=== PATIENT | female | born 1950 | race Caucasian/White ===

== ENCOUNTER → 2016-11-18 | Outpatient (CLI) | payer OTHER ==
[~2016-11-18] MED LIST: AMOX875T3 PO; CHOL100010 PO; DTRSR4 PO; DULO60CA44 PO; FLUT0.15 NAE; LORA-741 PO; LORA10TA44 PO; SIMV40TA4 PO
[2016-11-18 14:11] LABS: URINE APPEARANCE TURBID (CLEAR); URINE BILIRUBIN NEG (NEG); URINE COLOR YELLOW; URINE EPITHELIAL CELL AUTO 20-30 /lpf (0-5); URINE NITRITE POS (NEG); URINE SPECIFIC GRAVITY 1.017 (1.000-1.030); UROBILINOGEN NEG (NEG)
[2016-11-18 14:29] LABS: MANUAL MICROSCOPIC REQUIRED? NO; REVIEW REQ? NO
== END | disposition home or self-care (01) ==
LOC: C.LABBC 11:23
PROVIDERS: ATTEND Family Medicine
DX: R30.0 Dysuria (principal); R05 Cough

== ENCOUNTER → 2016-12-03 | Outpatient (CLI) | payer OTHER ==
[2016-12-03 18:43] LABS: INFLUENZA A PCR Neg for Influ A (NEG); INFLUENZA B PCR Neg for Influ B (NEG)
== END | disposition home or self-care (01) ==
LOC: C.LABBC 13:50
PROVIDERS: ATTEND Family Medicine
DX: J22 Unspecified acute lower respiratory infection (principal)

== ENCOUNTER → 2016-12-22 | Outpatient (CLI) | payer OTHER ==
--- NOTE | 2016-12-22 12:06 | DIAGNOSTIC IMAGING REPORT ---
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 COMPARISON: Chest CT 06/24/2016. FINDINGS: Postoperative changes consistent with a prior right upper lobectomy. Surgical clips and suture material seen along the medial aspect of the right lung. A few small linear densities seen within the right lung are not significantly changed. These favor scarring from the postoperative change. Linear thickening within the right middle lobe adjacent to the suture material is also stable and likely represent scarring. No pneumothorax. No pleural effusions. A 1 mm punctate nodule within the left lung apex remains stable. This is of doubtful clinical significance. No new or suspicious pulmonary nodules identified. No suspicious lytic or blastic osseous lesions. No definite mediastinal or hilar lymphadenopathy on this noncontrast study. Subcarinal surgical clips are again noted. The heart is normal in size. The ascending thoracic aorta measures up to 3.6 cm in diameter. This remains unchanged. The unenhanced adrenal glands and spleen are unremarkable. Cholecystectomy. There are few hypodense lesions within the liver which are incompletely characterize on this noncontrast study. The dominant lesion measures 1.5 cm. These are stable from the prior study and therefore likely represent cysts. IMPRESSION: 1. Stable postoperative changes within the right lung with presumed areas of scarring as described above. 2. No lymphadenopathy within the chest. 3. Stable hepatic hypodense lesions which likely represent cysts. Electronically signed by: Aubrey Aguilar M.D. 12/22/2016 12:05 PM Dictated Date/Time: 12/22/2016 11:56 AM
== END | disposition home or self-care (01) ==
LOC: C.CTS 11:17
PROVIDERS: ATTEND Surgery
DX: C34.91 Malignant neoplasm of unspecified part of right bronchus or lung (principal); K76.9 Liver disease, unspecified

== ENCOUNTER → 2017-07-13 | Outpatient (CLI) | payer OTHER ==
[2017-07-13 18:02] LABS: ALT/SGPT 11 U/L (12-78); BLOOD UREA NITROGEN 14 mg/dl (7-18); BUN/CREATININE RATIO 14.3 (10-20); CALCIUM 9.7 mg/dl (8.5-10.1); CARBON DIOXIDE 30 mmol/L (21-32); CHLORIDE 108 mmol/L (98-107); CREATININE 0.95 mg/dl (0.60-1.20); GLUCOSE 79 mg/dl (70-99); POTASSIUM 3.8 mmol/L (3.5-5.1); SODIUM 142 mmol/L (136-145)
[2017-07-13 18:13] LABS: BASO % 0.3 %; BASO ABS # 0.02 K/uL (0-0.2); COMPLETE YES; HEMATOCRIT 45.5 % (37-47); IG% 0.2 %; LYMPH % 25.7 %; LYMPH ABS # 1.57 K/uL (1.2-3.4); MEAN CELL VOLUME 97.6 fL (80-100); MEAN CORPUSCULAR HGB CONC 32.7 g/dl (32-36); MEAN PLATELET VOLUME 9.9 fL (7.4-10.4); MONO % 7.5 %; NEUT % 65.3 %; PLATELET COUNT 235 K/uL (130-400); RED BLOOD COUNT 4.66 M/uL (4.2-5.4)
[2017-07-13 18:16] LABS: ALB/GLOB RATIO 1.3 (0.9-2); ALKALINE PHOSPHATASE 84 U/L (45-117); AST/SGOT 13 U/L (15-37)
--- NOTE | 2017-07-21 10:08 | CODING QUERY MEDICAL NECESSITY ---
SUPPORTING DIAGNOSIS NEEDED Ana PAK, A supporting diagnosis is required for the test/procedure performed on this patient in order for us to be reimbursed by the patient's insurance. Please provide a supporting diagnosis for the following test/procedure listed below next to the test name along with your signature. *If there is no additional diagnosis for this patient that would support the following test/procedure please document that below next to the test/procedure. Test(s)/Procedure(s) that require a supporting diagnosis: * ([id number]) VITAMIN D ASSAY DIAGNOSIS: * ([id number]) B12 VITAMIN LEVEL DIAGNOSIS: DATE OF SERVICE: 07/13/17 Provider Signature: Date: Thank you Rashi Shahid [facility] Information Management Once completed, please kindly fax back to [phone] For questions please call [phone]
== END | disposition home or self-care (01) ==
LOC: C.LABPVFM 15:12
PROVIDERS: ATTEND Nurse Practitioner Family
DX: R53.83 Other fatigue (principal); R82.90 Unspecified abnormal findings in urine; M81.0 Age-related osteoporosis without current pathological fracture

== ENCOUNTER → 2017-07-28 | Outpatient (CLI) | payer OTHER ==
--- NOTE | 2017-07-28 13:25 | DIAGNOSTIC IMAGING REPORT ---
(CHEST) THORAX WITHOUT CLINICAL HISTORY: ADENOCARCINOMA RT LUNG COMPARISON STUDY: 12/22/2016 CT DOSE: 172.19 mGy.cm TECHNIQUE: CT of the thorax was performed from the thoracic inlet to the lung bases. Images are reviewed in the axial, sagittal, and coronal planes. IV contrast was not administered for this examination. A dose lowering technique was utilized adhering to the principles of ALARA. FINDINGS: Thyroid: Imaged portions of the thyroid gland are normal in appearance. Thoracic aorta: The ascending thoracic aorta measures 37 mm. Heart: The heart is normal in size and configuration, without pericardial effusion. Lungs and pleural spaces: The patient is status post a right upper lobectomy. There is mild stable linear scarring at the level of the resection. There is no acute parenchymal consolidation. There are no suspicious pulmonary masses. Mediastinum: There is no mediastinal lymphadenopathy. Flakita: There is no evidence of pathologic hilar adenopathy given the limitations of a noncontrast study Axilla: There is no evidence of pathologic axillary lymphadenopathy Upper abdomen: Hepatic hypodensities remain stable. These approach water attenuation and likely represent cysts. Skeletal structures: There are no lytic or blastic osseous lesions. IMPRESSION: 1. Stable postsurgical changes of a right upper lobectomy 2. No evidence of recurrent neoplasm. 3. No evidence of pathologic adenopathy 4. Stable hepatic hypodense lesions, likely representing cysts. Electronically signed by: Duarte Padilla M.D. 07/28/2017 1:23 PM Dictated Date/Time: 07/28/2017 1:20 PM
== END | disposition home or self-care (01) ==
LOC: C.CTS 12:56
PROVIDERS: ATTEND Surgery
DX: C34.91 Malignant neoplasm of unspecified part of right bronchus or lung (principal); R91.1 Solitary pulmonary nodule; Z90.2 Acquired absence of lung [part of]; K76.9 Liver disease, unspecified

== ENCOUNTER → 2017-09-22 | Outpatient (CLI) | payer OTHER | END | disposition home or self-care (01) | LOC: C.LABPVFM 11:36 | PROVIDERS: ATTEND Nurse Practitioner Family | DX: Z87.19 Personal history of other diseases of the digestive system (principal) ==

== ENCOUNTER → 2017-12-06 | Outpatient (CLI) | payer OTHER ==
--- NOTE | 2017-12-07 15:22 | MAMMOGRAPHY REPORT ---
BILATERAL DIGITAL SCREENING MAMMOGRAM TOMOSYNTHESIS WITH CAD: 12/06/2017 CLINICAL HISTORY: Routine screening. Patient has no complaints. TECHNIQUE: Breast tomosynthesis in addition to standard 2D mammography was performed. Current study was also evaluated with a Computer Aided Detection (CAD) system. COMPARISON: Comparison is made to exams dated: 10/18/2016 mammogram, 10/13/2015 mammogram, 10/10/2014 mammogram, 10/09/2013 mammogram, 10/05/2012 mammogram, and 09/27/2011 mammogram - [facility]. BREAST COMPOSITION: The tissue of both breasts is heterogeneously dense, which may obscure small mas ses. FINDINGS: No suspicious masses, calcifications, or areas of architectural distortion are noted in ei ther breast. There has been no significant interval change compared to prior exams. IMPRESSION: ACR BI-RADS CATEGORY 1: NEGATIVE There is no mammographic evidence of malignancy. A 1 year screening mammogram is recommended. The pa tient will receive written notification of the results. Approximately 10% of breast cancers are not detected with mammography. A negative mammographic report should not delay biopsy if a clinically suggestive mass is present. Ruchi Esposito M.D. /:12/06/2017 15:24:37 Writing Tutor: Chantal ALBERT(Golden)(Sameer)([place]), [facility] letter sent: Normal 1/2 BI-RADS Code: ACR BI-RADS Category 1: Negative
== END | disposition home or self-care (01) ==
LOC: C.MAMM 14:32
PROVIDERS: ATTEND Nurse Practitioner Family
DX: Z12.31 Encounter for screening mammogram for malignant neoplasm of breast (principal)

== ENCOUNTER → 2017-12-09 | Outpatient (CLI) | payer OTHER ==
[2017-12-09 13:02] LABS: CALCIUM 9.8 mg/dl (8.5-10.1); CREATININE 0.99 mg/dl (0.60-1.20)
== END | disposition home or self-care (01) ==
LOC: C.LAB1850 11:31
PROVIDERS: ATTEND Internal Medicine Rheumatology
DX: N20.0 Calculus of kidney (principal); M81.0 Age-related osteoporosis without current pathological fracture; Z87.19 Personal history of other diseases of the digestive system

== ENCOUNTER → 2018-01-02 | Outpatient (CLI) | payer OTHER | END | disposition home or self-care (01) | LOC: C.MAMM 10:25 | PROVIDERS: ATTEND Internal Medicine Rheumatology | DX: M81.0 Age-related osteoporosis without current pathological fracture (principal); N20.0 Calculus of kidney; Z87.19 Personal history of other diseases of the digestive system ==

== ENCOUNTER → 2018-01-27 | Outpatient (CLI) | payer OTHER ==
--- NOTE | 2018-01-27 09:45 | DIAGNOSTIC IMAGING REPORT ---
(CHEST) THORAX WITHOUT CT DOSE: 147.25 mGycm CLINICAL HISTORY: 67 years-old Female with LUNG CA. Six-month follow-up study in a patient with history of lung cancer. History of prior right upper lobectomy. Subsequent treatment strategy TECHNIQUE: Multiaxial CT images of the chest were performed without contrast. A dose lowering technique was utilized adhering to the principles of ALARA. COMPARISON: Chest CT 07/28/2017. FINDINGS: Thyroid is homogeneous. Heart is normal in size without pericardial effusion. Coronary arterial disease. Mild atherosclerosis of the aorta without aneurysm Evaluation for adenopathy is limited without the use of IV contrast. No pathologic adenopathy is identified. Postoperative changes about the right hilum and subcarinal region with evidence of prior right upper lobectomy. Areas of mild pleural parenchymal scarring noted about the right hilum. There is mild subsegmental bibasilar atelectasis/scarring. No evidence of recurrent or residual disease. No evidence of pulmonary metastasis. There are no suspicious pulmonary nodules or masses identified. Central airways are patent. Prior cholecystectomy. Multiple low attenuating lesions about the liver redemonstrated, largest measuring up to 1.7 cm within the left hepatic lobe suggesting hepatic cyst. Mildly prominent pericecal lymph nodes measuring up to 5 mm in short axis are likely physiologic. Soft tissues and breast parenchyma appear unremarkable. The bones appear intact. No suspicious lytic or blastic bony lesions are identified. IMPRESSION: 1. No acute intrathoracic abnormality identified. 2. Postoperative changes of prior mediastinal debby dissection with right upper lobectomy. No evidence of recurrent, residual or metastatic disease. 3. No pathologic adenopathy or suspicious bone lesions. 4. Prior cholecystectomy. Electronically signed by: Geraldo Calvert M.D. 01/27/2018 9:44 AM Dictated Date/Time: 01/27/2018 9:37 AM
== END | disposition home or self-care (01) ==
LOC: C.CTS 08:58
PROVIDERS: ATTEND Surgery
DX: C34.91 Malignant neoplasm of unspecified part of right bronchus or lung (principal)

== ENCOUNTER → 2018-03-09 | Outpatient (CLI) | payer OTHER ==
--- NOTE | 2018-03-09 12:41 | DIAGNOSTIC IMAGING REPORT ---
SINUSES-MAXILLOFACIAL W/O HISTORY: 67 years-old Female R05 acute cough COMPARISON: None available TECHNIQUE: Multiple axial CT images of the maxillofacial bones and paranasal sinuses were obtained without use of IV contrast. A dose lowering technique was used consistent with the principals of QUINN. FINDINGS: There is mild to moderate cerebral atrophy. Moderate ill-defined areas of low-attenuation within the periventricular white matter suggest chronic microvascular ischemic changes. Cerebral vascular calcifications are seen at the level of the skull base. Orbits are symmetric and within normal limits. Soft tissues are unremarkable. Mastoid air cells and middle ear cavities are clear. There is mild mucoperiosteal thickening of the bilateral maxillary sinuses. The sphenoid and frontal sinuses are clear. There is mild mucosal thickening involving the anterior and posterior ethmoid air cells bilaterally. Minimal leftward bowing and spurring of the nasal septum. The bilateral sphenoethmoidal, frontoethmoidal and maxillary ostiomeatal units are widely patent. There are small bilateral Lisa cells present. No large luis bullosa. Elke cassandra appears normal. IMPRESSION: 1. Mild mucosal thickening of the maxillary and ethmoid sinuses with patency of the sinus outflow tracts. 2. Mild leftward bowing and spurring of the nasal septum. 3. Bilateral Lisa cells. The above report was generated using voice recognition software. It may contain grammatical, syntax or spelling errors. Electronically signed by: Geraldo Calvert M.D. 03/09/2018 12:39 PM Dictated Date/Time: 03/09/2018 12:35 PM
--- NOTE | 2018-03-09 14:13 | DIAGNOSTIC IMAGING REPORT ---
VIDEO SWALLOW CLINICAL HISTORY: Cough. Gastroesophageal reflux. COMPARISON STUDY: Modified barium swallow May 18, 2016. Fluoroscopy time: 1.9 minutes. FINDINGS: The swallowing mechanism was intact. There was no aspiration with thin liquids by spoon or cup, nectar thick liquids, pudding or crackers with paste. Epiglottic inversion and laryngeal elevation were normal. IMPRESSION: 1. Intact swallowing mechanism. No tracheal aspiration. 2. Full recommendations by speech pathology to follow. Electronically signed by: Mohsen Ball M.D. 03/09/2018 2:11 PM Dictated Date/Time: 03/09/2018 2:10 PM
--- NOTE | 2018-03-09 17:00 | SWALLOWING EVALUATION ---
REFERRING SPEECH PATHOLOGIST: n/a HISTORY: This 67 year-old female was referred for a VFSS at [facility] in order to rule out aspiration due to chronic, consistent coughing that the patient reports worsens during oral intake of solids and liquids. The patient has a PMH significant for N/V, lung CA s/p (R) upper lobectomy (2016), schatzki's ring dilated (2016), and osteopenia. The patient had a VFSS in May 2016 that resulted (-) for aspiration, but cervical osteophytes were present and there was evidence of mild esophageal dysmotility. ENT follow-up was recommended at that time. The patient reports having seen Dr. Louie in follow-up, but she cannot recall any results or recommendations from that visit. Currently the patient's diet level is regular. PROCEDURE: The patient was seen in the Radiology Department of [facility] for the VFSS. Cursory examination of the oral cavity revealed adequate dentition. Movement of the articulators was WNL. The patient was seated on a stool and was viewed in both the Anterior-Posterior (A-P) and Lateral planes. Volitional phonation exercises completed in the A-P plane revealed bilateral vocal fold movement and vocal intensity within functional limits. In the lateral plane, the patient was given the following boluses: 1 tsp. thin liquid barium x 2, single swallow thin liquid barium self-presented from a cup, sequential swallows of thin liquid barium self-presented from a cup, 1 tsp. nectar-thick liquid barium, single swallow nectar-thick liquid barium self-presented from a cup, 1 tsp. barium pudding, and 1/2 club cracker with barium pudding. The patient was then repositioned into the A-P plane and given 1 tsp. barium pudding. RESULTS: Oral Stage: Labial seal, lingual control for oral bolus hold, mastication, lingual movement for bolus transfer, oral clearance and pharyngeal swallow initiation were complete and WNL. Oral-stage of swallow WNL. Pharyngeal Stage: Velar elevation, laryngeal elevation, anterior hyoid excursion, epiglottic inversion, laryngeal vestibular closure, pharyngeal stripping wave, and pharyngeal contraction all complete. Distention and duration of PES opening complete. Tongue base retraction and pharyngeal clearance complete. No penetration or aspiration during the study. The pharyngeal-stage was WNL. The patient did cough after almost every swallow throughout the study. There were mild cervical osteophytes present, but no obstruction of bolus flow. Esophageal Stage: A pudding bolus transited the esophagus without impedance. SUMMARY/RECOMMENDATIONS: This patient presents with normal oral-pharyngeal swallowing mechanics, but does cough persistently after swallowing solids and liquids. The following is recommended: 1. Diet as tolerated 2. Consideration of f/u with otolaryngology. The patient requests not to return to Dr. Louie. Please consider Dr. Cheema or Dr. Arredondo. A summary of the results and recommendations was discussed with the patient immediately following the study. She is anticipating f/u with the referring physician and is agreeable to ENT consult if MD orders it. Thank you for referral of this patient. Please contact me at if any additional information is needed.
== END | disposition home or self-care (01) ==
LOC: C.CTS 12:12
PROVIDERS: ATTEND Internal Medicine Pulmonary Disease
DX: K21.9 Gastro-esophageal reflux disease without esophagitis (principal)

== ENCOUNTER 2022-11-15 17:03 | Observation (INO) ==
[2022-11-15 17:48] LABS: Basophils # (auto) 0.04 K/uL (0-0.2); Basophils % (auto) 0.4 %; Eosinophils # (auto) 0.06 K/uL (0-0.50); Eosinophils % (auto) 0.6 %; Hematocrit (blood only) 37.5 % (34.1-44.9); Hemoglobin 12.8 g/dl (12.0-16.0); Immature Granulocytes # (auto) 0.06 K/uL (0.00-0.02); Immature Granulocytes % (auto) 0.6 %; Lymphocytes # (auto) 1.71 K/uL (1.2-3.4); Lymphocytes % (auto) 16.4 %; Mean Corpuscular Hemoglobin 32.8 pg (25.0-34.0); Mean Corpuscular Hgb Conc 34.1 g/dL (32.0-36.0); Mean Corpuscular Volume 96.2 fL (80.0-100.0); Mean Platelet Volume 9.4 fL (9.4-12.3); Monocytes # (auto) 0.79 K/uL (0.24-0.82); Monocytes % (auto) 7.6 %; Neutrophils # (auto) 7.79 K/uL (1.4-6.5); Neutrophils % (auto) 74.4 %; Platelet Count 331 K/uL (130-400); RDW Coefficient of Variation 12.8 % (11.5-14.5); RDW Standard Deviation 44.8 fL (36.4-46.3); White Blood Count 10.45 K/ul (4.8-10.8)
[2022-11-15 18:22] LABS: BUN Creatinine Ratio 16.4 (10-20); Calcium 8.5 mg/dl (8.5-10.1); Creatinine Clr Calc Pharmacy 60.9 ml/min; Est GFR (African American) 100.4 ml/min; Est GFR (Non-African American) 86.6 ml/min; Potassium 2.6 mmol/L (3.5-5.1)
[2022-11-15 18:26] LABS: Albumin Globulin Ratio 1.3 (0.9-2); Albumin Level 3.5 gm/dl (3.4-5.0); Bilirubin,Total 0.7 mg/dl (0.2-1.0); Globulin 2.7 gm/dl (2.5-4.0); Magnesium 0.9 mg/dl (1.7-2.4); Total Protein 6.2 gm/dl (6.0-8.3)
[2022-11-15] MEDS ORDERED: POTASSIUM CHLORIDE CRTAB 20 MEQ TABCR PO STA ×2 (18:55→21:05)
--- NOTE | 2022-11-15 19:25 | Emergency Department Note ---
Impression & Plan Myalgia, Hypokalemia, Hypomagnesemia ED Provider Note Provider: Jamel Mae MD DATE OF SERVICE: 11/10/2022 CHIEF COMPLAINT: Abnormal labs, weakness HISTORY OF PRESENT ILLNESS: Patient is a 72-year-old female history of lung cancer status postresection, hyperlipidemia, and recent evaluation here on November 02 for cough and diarrhea. Patient states she is still been feeling fatigued but no longer has significant cough, shortness of breath, or diarrhea. Reports she is getting bit of pain in the back of her calves but denies significant swelling. States she has been try to eat but and daughter who are present states they do not think she is eating enough. Again denies any concurrent diarrhea. Denies significant palpitations. Reports again generalized fatigue. Saw Dr. Weiss repeat blood work and call due to low magnesium and potassium. PAST MEDICAL HISTORY: As noted above MEDICATIONS: Reviewed home medications at bedside SOCIAL HISTORY: , lives at home, denies significant alcohol use PHYSICAL EXAM: GENERAL: alert and oriented in no acute distress on stretcher Head: normocephalic and atraumatic EYES: No injection, discharge or icterus. NECK: Trachea midline. ENT: Mucous membranes pink and moist. LUNGS: Airway patent. No retractions. Breath sounds clear with good air entry bilaterally. HEART: Regular rate and rhythm. No chest wall tenderness ABDOMEN: Soft and non-tender, without guarding or rebound. SKIN: Acyanotic, warm, dry, without rashes EXTREMITIES: Without swelling, tenderness or deformity without significant calf swelling or tenderness NEUROLOGICAL: No focal deficits. No aphasia. No facial droop or slurred speech. Ambulatory. EK bpm sinus rhythm with several periods of artifact on the EKG. No acute ST segment elevation or depression obviously noted. QTc 523. CONTINUOUS CARDIAC MONITORING: was ordered and showed a heart rate of 80s-90s bpm in normal sinus rhythm Patient's laboratory studies and imaging reviewed. Differential includes Infection, dehydration, metabolic abnormality, hypo/hyperglycemia, electrolyte disturbance, anemia, cardiac sources/arrhythmias, intracerebral event, toxicologic, neurologic, as well as other pathologies. IMPRESSION/MEDICAL DECISION MAKING: Patient is a 72-year-old female complaint of weakness with resolution of cold diarrhea symptoms from the end of October. Was seen here during that time. Still feeling weak with some cramping legs but not swelling. Has been trying to eat. Benign abdomen. Labs confirm hypokalemia hypomagnesemia fairly severe. He is somewhat symptomatic with cramping in legs. About bilateral DVT. Does not appear significantly swollen and doubt CHF. Given some intravenous and oral potassium as well as some intravenous magnesium supplementation. Benign abdomen. Unsure of the exact etiology of her low level so this still could be recovering from recent illness. No longer having diarrhea losses. Family question if she has been taking in enough. Not having significant focal neurological symptoms. EKG without any severe arrhythmias at this point. Given the lower levels, these will require some time to replete and discussed with her staying overnight for this. Hospitalist contacted and she was in agreement with this plan. DIAGNOSIS: Hypomagnesemia, hypokalemia, weakness, leg myalgias DISPOSITION: Hospitalist will evaluate Patient was agreeable with this plan. Past Med/Surg History Medical History (Updated 11/15/22 @ 22:49 by Jamel Mae M.D.) Anemia Anxiety Depression Diverticular disease Diverticulosis (03/15/13) Family history of breast cancer GERD (gastroesophageal reflux disease) Hyperlipidemia Kidney stones Low back pain Lung cancer resolved Osteoporosis Overactive bladder Stage I adenocarcinoma of lung removed half of right lung > no chemo/radiation White coat syndrome with hypertension Surgical History History of arthroscopy left knee History of cholecystectomy History of colonoscopy History of cystoscopy History of esophagogastroduodenoscopy (EGD) History of hysterectomy History of lithotripsy History of partial laryngectomy History of tonsillectomy History of tooth extraction S/P small bowel resection Status post partial removal of lung right Family History Aunt Breast cancer Father Stroke Lung cancer Grandmother (Maternal) Diabetes Brother Cancer Brain cancer Stroke Other Nephrolithiasis Denies family history of Ovarian cancer Prostate cancer Colorectal cancer Social History Smoking Status: Never smoker Second Hand Exposure: No; Hx Alcohol Use: Yes Alcohol type: wine Hx Substance Use: No Preferred Language: Polish Communication Ability: Effective Belt Glass Sander Required: No Beliefs That Will Affect Care: None marital status: Current Living Situation: Spouse current occupational status: retired How many Children do You have: 2 Feels Safe at Home: Yes Childhood Exposure to Second-Hand Smoke: Yes caffeine: Yes Dental Care, Regularly: Yes Physical Activity Frequency: 1-2 Times per Week Seatbelt Use: always Sunscreen Use: No Assistive Devices: Glasses Allergies Allergies Allergy/AdvReac Type Severity Reaction Status Date / Time Sulfa (Sulfonamide Allergy Severe HIVES; Verified 11/15/22 19:10 Antibiotics) throat swelling Home Meds Home Medications Medication Instructions Recorded Confirmed bismuth subsalicylate 262 mg 2 tab PO Q1H PRN UPSET STOMACH 10/25/22 11/15/22 chewable tablet (Pepto-Bismol) Previous Rx's Medication Instructions Recorded fluticasone propionate 50 1 sprays intranasal DAILY PRN 08/13/19 mcg/actuation nasal allergy symptoms #16 grams spray,suspension (Allergy Relief (fluticasone)) loratadine 10 mg tablet (Allergy 10 mg PO DAILY PRN allergy 11/28/20 Relief (loratadine)) symptoms #90 tabs tolterodine 4 mg capsule,extended 4 mg PO PM #90 caps 10/13/21 release 24 hr simvastatin 40 mg tablet 40 mg PO QPM #90 tabs 12/14/21 pantoprazole 40 mg tablet,delayed 40 mg PO BID #60 tabs 02/05/22 release duloxetine 60 mg capsule,delayed 60 mg PO QAM #90 caps 08/11/22 release Results & Data (ED) Vital Signs Vital Signs - 24 hr 11/15/22 17:09 11/15/22 18:45 11/15/22 18:55 Temperature 36.8 C Temperature Source Temporal Artery Scan Pulse Rate 100 H 89 Pulse Rate [Finger] 89 Pulse Rate from SpO2 Sensor 89 Pulse Rhythm [Finger] Regular Pulse Strength [Finger] Normal Respiratory Rate 19 20 22 Respiratory Effort / Characteristics Non-Labored Respiratory Depth Normal Respiratory Pattern Regular Blood Pressure 149/98 H Blood Pressure [Left Arm] 169/110 H Blood Pressure Mean 115 Blood Pressure Mean [Left Arm] 129 Pulse Oximetry 97 98 99 Oxygen Delivery Method Room Air Room Air Sepsis Recent Fever Within 48 Hours No Sepsis New/Unexplained Change in Mental Status N/A Sepsis Action Taken by Nursing No Action Required 11/15/22 19:00 11/15/22 19:00 01/09/23 19:30 Temperature Temperature Source Pulse Rate 88 89 Pulse Rate [Finger] Pulse Rate from SpO2 Sensor 88 89 Pulse Rhythm [Finger] Pulse Strength [Finger] Respiratory Rate 19 19 Respiratory Effort / Characteristics Respiratory Depth Respiratory Pattern Blood Pressure 165/93 H Blood Pressure [Left Arm] Blood Pressure Mean 117 Blood Pressure Mean [Left Arm] Pulse Oximetry 99 97 Oxygen Delivery Method Sepsis Recent Fever Within 48 Hours Sepsis New/Unexplained Change in Mental Status Sepsis Action Taken by Nursing 11/15/22 19:31 11/15/22 19:31 Temperature Temperature Source Pulse Rate 88 Pulse Rate [Finger] Pulse Rate from SpO2 Sensor 88 Pulse Rhythm [Finger] Pulse Strength [Finger] Respiratory Rate 18 Respiratory Effort / Characteristics Respiratory Depth Respiratory Pattern Blood Pressure 152/119 H Blood Pressure [Left Arm] Blood Pressure Mean 130 Blood Pressure Mean [Left Arm] Pulse Oximetry 97 Oxygen Delivery Method Sepsis Recent Fever Within 48 Hours Sepsis New/Unexplained Change in Mental Status Sepsis Action Taken by Nursing Laboratory Data 11/15/22 17:24 11/15/22 17:24 Lab Results 11/15/22 11/15/22 11/15/22 Range/Units 17:24 17:24 17:24 WBC 10.45 (4.8-10.8) K/ul RBC 3.90 L (3.93-5.22) M/uL Hgb 12.8 (12.0-16.0) g/dl Hct 37.5 (34.1-44.9) % MCV 96.2 (80.0-100.0) fL MCH 32.8 (25.0-34.0) pg MCHC 34.1 (32.0-36.0) g/dL RDW Std Deviation 44.8 (36.4-46.3) fL RDW Coeff of Ila 12.8 (11.5-14.5) % Plt Count 331 (130-400) K/uL MPV 9.4 (9.4-12.3) fL Immature Gran % (Auto) 0.6 % Neut % (Auto) 74.4 % Lymph % (Auto) 16.4 % Pine % (Auto) 7.6 % Eos % (Auto) 0.6 % Baso % (Auto) 0.4 % Neut # (Auto) 7.79 H (1.4-6.5) K/uL Lymph # (Auto) 1.71 (1.2-3.4) K/uL Pine # (Auto) 0.79 (0.24-0.82) K/uL Eos # (Auto) 0.06 (0-0.50) K/uL Baso # (Auto) 0.04 (0-0.2) K/uL Immature Gran # (Auto) 0.06 H (0.00-0.02) K/uL Sodium 138 (136-145) mmol/L Potassium 2.6 L (3.5-5.1) mmol/L Chloride 100 (98-107) mmol/L Carbon Dioxide 29 (21-32) mmol/L Anion Gap 9 (3-11) BUN 11 (6-23) mg/dl Creatinine 0.67 (0.6-1.2) mg/dl Est Cr Clr Drug Dosing 60.9 ml/min Est GFR ( Amer) 100.4 ml/min Est GFR (Non-Af Amer) 86.6 ml/min BUN/Creatinine Ratio 16.4 (10-20) Glucose 105 H (70-99(Fasting)) mg/dl Calcium 8.5 (8.5-10.1) mg/dl Phosphorus 3.0 (2.5-4.9) mg/dl Magnesium 0.9 L* (1.7-2.4) mg/dl Total Bilirubin 0.7 (0.2-1.0) mg/dl AST 11 L (13-39) U/L ALT 6 L (7-52) U/L Alkaline Phosphatase 82 (34-104) U/L Total Protein 6.2 (6.0-8.3) gm/dl Albumin 3.5 (3.4-5.0) gm/dl Globulin 2.7 (2.5-4.0) gm/dl Albumin/Globulin Ratio 1.3 (0.9-2) Administered Medications Sodium Chloride (Nss) 500 mls @ 40 mls/hr IV .[id number] [facility] Stop: 12/15/22 19:59 Last Admin: 11/15/22 20:31 Dose: 40 mls/hr Documented By: MARLENE Magnesium Sulfate/Dextrose (Magnesium Sulfate / D5w) 1 gm in 100 mls @ 50 mls/hr IV Q2H [facility] Stop: 11/16/22 07:14 Last Admin: 11/15/22 21:26 Dose: 50 mls/hr Documented By: MARLENE Discontinued Medications Potassium Chloride (K Luis E / Wtr) 10 meq in 100 mls @ 100 mls/hr IV Q1H [facility]; Protocol Stop: 11/15/22 20:59 Last Infusion: 11/15/22 21:34 Dose: 0 mls/hr Documented By: Admin: 11/15/22 20:39 Dose: 100 mls/hr Documented By: Infusion: 11/15/22 20:39 Dose: 100 mls/hr Documented By: Admin: 11/15/22 19:39 Dose: 100 mls/hr Documented By: MARLENE Magnesium Sulfate/Dextrose (Magnesium Sulfate / D5w) 1 gm in 100 mls @ 200 mls/hr IV Q30M [facility] Stop: 11/15/22 19:54 Last Infusion: 11/15/22 21:34 Dose: 0 mls/hr Documented By: Admin: 11/15/22 20:16 Dose: 200 mls/hr Documented By: Infusion: 11/15/22 20:08 Dose: 200 mls/hr Documented By: Admin: 11/15/22 19:38 Dose: 200 mls/hr Documented By: MARLENE Potassium Chloride (Potassium Chloride Crtab 20 Meq Tabcr) 40 meq PO NOW STA Stop: 11/15/22 18:56 Last Admin: 11/15/22 19:38 Dose: 40 meq Documented By: MARLENE Potassium Chloride (Potassium Chloride Crtab 20 Meq Tabcr) 40 meq PO NOW STA Stop: 11/15/22 21:06 Last Admin: 11/15/22 21:26 Dose: 40 meq Documented By: MARLENE Discharge Plan Visit Data Chief Complaint: Abnormal Labs/Diagnostic Testing Stated Complaint: REF BY DOC, ABNORMAL LAB,LOW MAGNESIUM ED Provider: Jamel Mae Discharge Problem: Myalgia, Hypokalemia, Hypomagnesemia Patient Disposition: Being Evaluated by Hospitalist Discharge Instructions Interventions: ED Discharge Assessment Last Done: 11/15/22 22:13
[2022-11-15] MEDS: MAGNESIUM SULFATE / D5W 1 GM/100 ML BAG IV SCH ×4 (19:38→23:10)
[2022-11-15] MEDS: POTASSIUM CHLORIDE / WTR 10 MEQ/100 ML PLCT IV SCH ×2 (19:39→20:39)
--- NOTE | 2022-11-15 19:42 | History & Physical Report ---
Date of Service November 15, 2022 Assessment & Plan (1) Hypokalemia: Plan: -Admit to med tele -Patient is currently afebrile, hemodynamically stable, and stable on RA -Potassium noted to be 2.6 in the ED, noted to also have a magnesium of 0.9 -Patient was last seen in the [facility] ED in 11/02 for the same complaint, was give IV magnesium and both IV/PO KCL but declined being admitted for further repletion -Patient is not on a diuretic and appears to not have a good diet, she also had a recent week of diarrhea. Her low potassium and magnesium are likely the result of poor oral intake, recent diarrheal illness, inadequate repletion, and not being on supplementation prior to arrival -Was ordered 2g IV magnesium, 2 doses of 10 meq IV KCL, and 40 meq PO KCL. Patient is currently in the process of receiving her initial repletion -Will order 5 additional bags of IV magnesium and 40 meq PO KCL -Will order a phos level as well -Continue to monitor on tele -Will order repeat labs for midnight to reassess electrolyte status, will speak with night team to replete as needed based on repeat labs. -AM CBC, BMP, mag -Fuel System Maintenance Worker consult ordered -DVT PPX with BL SCDs (2) Hypomagnesemia: Plan: -See hypokalemia (3) Myalgia: Plan: -Patient has noted BL LE stiffness/cramping with standing/ambulation over the past week-2 weeks -Likely the result of her electrolyte abnormalities, would reassess when her electrolytes are stable, if she is still having symptoms despite correction of electrolytes would continue further workup (4) Overactive bladder: Plan: -Continue tolterodine (5) Anxiety: Plan: -Continue Duloxetine (6) Depression: Plan: -Continue Duloxetine (7) Hyperlipidemia: Plan: -Continue statin (8) GERD (gastroesophageal reflux disease): Plan: -continue pantoprazole Plan The patient was discussed with Dr. Gordon at the time of the admission History of Present Illness Chief Complaint: Abnormal outpatient labs Primary Care Provider: PASHA Medeiros Ms. Venegas is a 72 year old female with a PMH significant for Anxiety, Depression, GERD, hyperlipidemia, overactive bladder, adenocarcinoma of the lung S/P resection, who presented to the [facility] ED on 11/15/22 with a chief complaint of abnormal outpatient labs. Per chart review, the patient was seen in the [facility] ED on 11/02/22 at the recommendation of her PCP for generalized weakness, muscle cramping, URI symptoms, as-well-as diarrhea, nausea, and vomiting. Her workup in the ED at that time was noted for a potassium of 3.0 and magnesium of 1.0. She was noted to be negative for covid, influenza, and RSV at that time. She was initially given IV magnesium and PO KCL with some improvement in her symptoms but she still felt generally weak. Inpatient admission was offered for continued IV magnesium repletion but she wished to go home. She agreed with getting an additional dose of IV magnesium prior to discharge from the ED. She was seen for follow-up with her PCP on 11/09/22. Per their note, the patient was called in a prescription for an antibiotic after being discharged from the ED and was prescribed one, she confirmed with her PCP that she had completed the course at the time of follow-up. During her follow-up she explained that her URI symptoms were improving but she was still feeling very weak and having significant muscle cramping in her legs. It was noted that she was given IV electrolyte repletion but had not been on oral repletion after being discharged from the ED. Outpatient labs were ordered and she was found to be hypokalemic and have low magnesium again, which is why she was recommended to come to the ED today. In the ED today the patient was found to be afebrile, hypertensive at 169/110, and stable on RA. Labs were remarkable for a WBC WNL, stable Hgb and platelets, stable cr at 0.67, potassium of 2.6, mag of 0.9, otherwise labs WNL. The patient did not have imaging done on this ED visit today but did undergo CTA of the chest and CT of the abdomen/pelvis with IV contrast on 11/02/22, both of which were negative for acute findings. Prior to admission the patient was ordered 2 bags of 1g IV magnesium, 10 meq of IV KCL x 2 doses, and 40 meq of PO KCL. At the time of the exam the patient was resting comfortably in bed in no acute distress with her and daughter sitting bedside, history was obtained from all. They state that prior to her arrival to the ED on 11/02 she had experienced 7 days of diarrhea. She confirmed that she completed her course of antibiotics but is unsure of it's name. Since being discharged from the ED on 11/02 her diarrhea has resolved and her appetite has improved compared to 11/02. When asked about her appetite and diet she states that she is eating and drinking well but her family states that she does not eat as much as she should. She will have half a banana for breakfast but will often forget to eat the other half. They confirm that she is not on electrolyte supplementation, multivitamins, or diuretics. Her main complaint today is BL LE stiffness/cramping she has been experiencing over the past week. She states that she is mostly asymptomatic at rest but notices her symptoms when gets up from sitting and starts to walk. She denies recent swelling in her LE's and has no other complaints at the time of my exam. I spoke to she and her family regarding code status, the patient wishes to be a full code. Her would make decisions for her if she could not make them herself. Please refer to Dr. Gordon's attestation for any changes to the treatment plan Allergies Allergy/AdvReac Type Severity Reaction Status Date / Time Sulfa (Sulfonamide Allergy Severe HIVES; Verified 11/15/22 19:10 Antibiotics) throat swelling Home Medications Medication Instructions Recorded Confirmed Type fluticasone propionate 50 1 sprays intranasal DAILY PRN 08/13/19 11/15/22 Rx mcg/actuation nasal allergy symptoms #16 grams spray,suspension (Allergy Relief (fluticasone)) loratadine 10 mg tablet (Allergy 10 mg PO DAILY PRN allergy 11/28/20 11/15/22 Rx Relief (loratadine)) symptoms #90 tabs tolterodine 4 mg capsule,extended 4 mg PO PM #90 caps 10/13/21 11/15/22 Rx release 24 hr simvastatin 40 mg tablet 40 mg PO QPM #90 tabs 12/14/21 11/15/22 Rx pantoprazole 40 mg tablet,delayed 40 mg PO BID #60 tabs 02/05/22 11/15/22 Rx release duloxetine 60 mg capsule,delayed 60 mg PO QAM #90 caps 08/11/22 11/15/22 Rx release bismuth subsalicylate 262 mg 2 tab PO Q1H PRN UPSET STOMACH 10/25/22 11/15/22 History chewable tablet (Pepto-Bismol) Past Med/Surg History Medical History (Updated 11/15/22 @ 22:49 by Jamel Mae M.D.) Anemia Anxiety Depression Diverticular disease Diverticulosis (03/15/13) Family history of breast cancer GERD (gastroesophageal reflux disease) Hyperlipidemia Kidney stones Low back pain Lung cancer resolved Osteoporosis Overactive bladder Stage I adenocarcinoma of lung removed half of right lung > no chemo/radiation White coat syndrome with hypertension Surgical History History of arthroscopy left knee History of cholecystectomy History of colonoscopy History of cystoscopy History of esophagogastroduodenoscopy (EGD) History of hysterectomy History of lithotripsy History of partial laryngectomy History of tonsillectomy History of tooth extraction S/P small bowel resection Status post partial removal of lung right Family History Aunt Breast cancer Father Stroke Lung cancer Grandmother (Maternal) Diabetes Brother Cancer Brain cancer Stroke Other Nephrolithiasis Denies family history of Ovarian cancer Prostate cancer Colorectal cancer Social History Smoking Status: Former smoker Second Hand Exposure: No; Hx Alcohol Use: Yes Alcohol type: wine Hx Substance Use: No Preferred Language: Yakut Communication Ability: Effective Floor Worker Required: No Beliefs That Will Affect Care: None marital status: Current Living Situation: Spouse current occupational status: retired How many Children do You have: 2 Other Information That Helps Us Care for You: No Feels Safe at Home: Yes Safety Concerns: Feels Safe At This Time Childhood Exposure to Second-Hand Smoke: Yes caffeine: Yes Dental Care, Regularly: Yes Physical Activity Frequency: 1-2 Times per Week Seatbelt Use: always Sunscreen Use: No Assistive Devices: Glasses Review of Systems Review of Systems: Denies current fever, chills, headache, changes in vision, hearing, taste, and smell, chest pain, SOB, cough, abdominal pain, nausea, vomiting, diarrhea, hematemesis, melena, dysuria, hematuria, and recent falls. All systems have been reviewed and are otherwise negative. Physical Exam Physical Exam: Physical Exam: General: In no acute distress, stated age, well-nourished, good hygiene HEENT: Normocephalic, atraumatic, no scleral icterus, pupils around round, symmetrical, and reactive to light, dry mucus membranes, trachea midline, no thyromegaly Chest/Pulm: No respiratory distress, symmetrical chest expansion, clear breath sounds throughout Cardiac: RRR, no murmurs noted Abdomen: Negative for ascites and bruising, normoactive bowel sounds, soft, non-tender to palpation throughout Musculoskeletal: Symmetrical and without signs of acute trauma, upper and lower extremities with full ROM, no atrophy, spasticity, or flaccidity Extremities: Radial, dorsalis pedis, and posterior tibial pulses are intact and symmetrical, no edema noted in the BL LE's Skin: Warm, dry, no rashes , lesions, or scars noted Neuro: Alert and oriented to person, place, month, year, and president, no focal defects, CN II-XII tested and intact, finger to nose test negative, no tremors noted Psych: No acute distress, calm and cooperative during the exam Results & Data Results & Data ([facility]) Vital Signs (Past 12 Hours) Vital Signs Temp Pulse Pulse Resp BP BP Pulse Ox 11/15/22 18:45 89 20 169/110 H 98 11/15/22 17:09 36.8 C 100 H 19 149/98 H 97 O2 Del Method 11/15/22 18:45 Room Air 11/15/22 17:09 Room Air Laboratory Results Abnormal lab results 11/15/22 11/15/22 Range/Units 17:24 17:24 RBC 3.90 L (3.93-5.22) M/uL Neut # (Auto) 7.79 H (1.4-6.5) K/uL Immature Gran # (Auto) 0.06 H (0.00-0.02) K/uL Potassium 2.6 L (3.5-5.1) mmol/L Glucose 105 H (70-99(Fasting)) mg/dl Magnesium 0.9 L* (1.7-2.4) mg/dl AST 11 L (13-39) U/L ALT 6 L (7-52) U/L ECG Additional Comments: Poor data quality, interpretation may be adversely affected Sinus rhythm with A-V dissociation and Accelerated Junctional rhythm Left ventricular hypertrophy with repolarization abnormality Abnormal ECG When compared with ECG of 03-NOV-2022 00:51, Junctional rhythm has replaced Sinus rhythm T wave inversion now evident in Lateral leads Code Status & VTE Plan Code Status Full code VTE Prophylaxis Plan VTE Prophylaxis will be ordered: Yes Supervising Physician Co-Signing Physician Notes Patient seen and examined, chart reviewed, case discussed with PATRICK Peralta at the time of admission and I agree with the assessment and plan as above. In brief, patient is a 72yo female presenting with abnormal outpatient labs - hypokalemia as well as hypomagnesemia. She complains of generalized weakness, muscle cramping, recent diarrhea, nausea and vomiting now resolved. On exam she is afebrile, hypertensive, otherwise HD stable, NAD Skin - no rash HEENT - MMM, neck supple Heart - +S1/S2, regular, no m/r/g Lungs - CTA Abd - soft, NT/ND Ext - warm, well perfused Labs and images reviewed. K=2.6, Mg=0.9 No acute EKG changes Assessment/Plan -Electrolyte repletion - as above with IV Magnesium. PO potassium preferred due to burning with IV infusion. -Repeat labs -Remainder as above PG Care Time/CCT Total # of Minutes Spent Total Time Spent with Patient: Total time spent is greater than 50% in coordination of care (as documented) at patient's floor/unit and/or counseling patient: Coding [place] [address] INT INP/OBS CARE 3/75MIN Patient Type Established Medical Decision Making High Complexity Diagnoses Hypokalemia E87.6 Hypomagnesemia E83.42 Myalgia M79.10 Overactive bladder N32.81 Anxiety F41.9 Depression F32.9 Hyperlipidemia E78.5 GERD (gastroesophageal reflux disease) K21.9
[2022-11-15] MEDS: SODIUM CHLORIDE 0.9% 500 ML IV SCH (20:31)
[2022-11-15 21:49] LABS: Appearance Urine Clear (Clear); Bacteria Urine Automated Negative (Negative); Bilirubin Urine Negative (Negative); Blood Urine Trace (Negative); Cast Urine Automated 0 /lpf (0-5); Color Urine Yellow; Glucose Urine UA Negative (Negative); Ketones Urine Negative (Negative); Leukocyte Esterase Urine Negative (Negative); Nitrite Urine Negative (Negative); Protein Urine Negative (Negative); RBC Urine Automated 0-4 /hpf (0-4); Specific Gravity Urine 1.004 (1.000-1.030); Urobilinogen Urine Negative (Negative)
[2022-11-15] MEDS ORDERED: SIMVASTATIN 40 MG TAB PO SCH (22:18)
[2022-11-15] MEDS ORDERED: TOLTERODINE TARTRATE LA 4 MG CAPCR PO SCH (22:18)
[2022-11-15] MEDS ORDERED: ACETAMINOPHEN 500 MG TAB PO PRN (23:21)
[2022-11-15] MEDS: PANTOprazole 40 MG TAB PO SCH (23:32)
[2022-11-16] MEDS: MAGNESIUM SULFATE / D5W 1 GM/100 ML BAG IV SCH ×3 (01:07→05:17)
[2022-11-16 01:33] LABS: BUN Creatinine Ratio 17.3 (10-20); Calcium 8.6 mg/dl (8.5-10.1); Creatinine Clr Calc Pharmacy 78.5 ml/min; Est GFR (African American) 109.1 ml/min; Est GFR (Non-African American) 94.1 ml/min; Magnesium 2.5 mg/dl (1.7-2.4); Potassium 3.1 mmol/L (3.5-5.1)
[2022-11-16] MEDS ORDERED: POTASSIUM CHLORIDE CRTAB 20 MEQ TABCR PO STA (01:41)
--- NOTE | 2022-11-16 01:44 | Communication Note ---
Date of Service: November 16, 2022 Overnight labs returned with potassium at 3.1 (prior value 2.6) and magnesium at 2.5 (prior value 0.9). I was notified there were three more 1g bags of mag sulfate ordered, and asked RN to finish the currently-running bag and to skip the remaining two. I also ordered KCl 40mEq PO (x1). Repeat BMP, mag, and phos are all ordered for AM labs. Feliciano Flores MD, PGY3 Resident Activity Tracking Resident Involvement: Resident Care Provided and Onboarding Specialist Coverage Note Care Provided: Adult Hospital Medicine
[2022-11-16] MEDS: SODIUM CHLORIDE 0.9% 500 ML IV SCH (01:55)
[2022-11-16 07:59] LABS: Hematocrit (blood only) 36.4 % (34.1-44.9); Hemoglobin 12.4 g/dl (12.0-16.0); Mean Corpuscular Hemoglobin 32.7 pg (25.0-34.0); Mean Corpuscular Hgb Conc 34.1 g/dL (32.0-36.0); Mean Platelet Volume 9.5 fL (9.4-12.3); Platelet Count 305 K/uL (130-400); RDW Coefficient of Variation 12.8 % (11.5-14.5); RDW Standard Deviation 45.3 fL (36.4-46.3); Red Blood Count 3.79 M/uL (3.93-5.22)
--- NOTE | 2022-11-16 08:05 | Electrocardiogram Report ---
Test Reason : Blood Pressure : / mmHG Vent. Rate : 096 BPM Atrial Rate : 096 BPM P-R Int : 000 ms QRS Dur : 080 ms QT Int : 414 ms P-R-T Axes : 027 -12 062 degrees QTc Int : 523 ms Poor data quality, interpretation may be adversely affected Sinus rhythm Voltage criteria for left ventricular hypertrophy Diffuse Minor Nonspecific T wave abnormality Abnormal ECG When compared with ECG of 03-NOV-2022 00:51, Diffuse Nonspecific T wave abnormality now present Confirmed by Irving Ackerman ([id number]) on 11/16/2022 8:05:29 AM Referred By: Nadia Elam Confirmed By:Irving Ackerman
[2022-11-16] MEDS: PANTOprazole 40 MG TAB PO SCH (08:19)
[2022-11-16 08:34] LABS: BUN Creatinine Ratio 12.9 (10-20); Calcium 8.1 mg/dl (8.5-10.1); Creatinine Clr Calc Pharmacy 65.9 ml/min; Est GFR (Non-African American) 88.8 ml/min; Magnesium 2.5 mg/dl (1.7-2.4); Phosphorus 2.3 mg/dl (2.5-4.9); Potassium 3.9 mmol/L (3.5-5.1)
[2022-11-16] MEDS ORDERED: DULoxetine HCL 60 MG CAP PO SCH (09:00)
--- NOTE | 2022-11-16 10:47 | Discharge Summary ---
Date of Service November 16, 2022 Admission HPI Per Admitting Provider Ms. Venegas is a 72 year old female with a PMH significant for Anxiety, Depression, GERD, hyperlipidemia, overactive bladder, adenocarcinoma of the lung S/P resection, who presented to the [facility] ED on 11/15/22 with a chief complaint of abnormal outpatient labs. Per chart review, the patient was seen in the [facility] ED on 11/02/22 at the recommendation of her PCP for generalized weakness, muscle cramping, URI symptoms, as-well-as diarrhea, nausea, and vomiting. Her workup in the ED at that time was noted for a potassium of 3.0 and magnesium of 1.0. She was noted to be negative for covid, influenza, and RSV at that time. She was initially given IV magnesium and PO KCL with some improvement in her symptoms but she still felt generally weak. Inpatient admission was offered for continued IV magnesium repletion but she wished to go home. She agreed with getting an additional dose of IV magnesium prior to discharge from the ED. She was seen for follow-up with her PCP on 11/09/22. Per their note, the patient was called in a prescription for an antibiotic after being discharged from the ED and was prescribed one, she confirmed with her PCP that she had completed the course at the time of follow-up. During her follow-up she explained that her URI symptoms were improving but she was still feeling very weak and having significant muscle cramping in her legs. It was noted that she was given IV electrolyte repletion b ut had not been on oral repletion after being discharged from the ED. Outpatient labs were ordered and she was found to be hypokalemic and have low magnesium again, which is why she was recommended to come to the ED today. In the ED today the patient was found to be afebrile, hypertensive at 169/110, and stable on RA. Labs were remarkable for a WBC WNL, stable Hgb and platelets, stable cr at 0.67, potassium of 2.6, mag of 0.9, otherwise labs WNL. The patient did not have imaging done on this ED visit today but did undergo CTA of the chest and CT of the abdomen/pelvis with IV contrast on 11/02/22, both of which were negative for acute findings. Prior to admission the patient was ordered 2 bags of 1g IV magnesium, 10 meq of IV KCL x 2 doses, and 40 meq of PO KCL. At the time of the exam the patient was resting comfortably in bed in no acute distress with her and daughter sitting bedside, history was obtained from all. They state that prior to her arrival to the ED on 11/02 she had experienced 7 days of diarrhea. She confirmed that she completed her course of antibiotics but is unsure of it's name. Since being discharged from the ED on 11/02 her diarrhea has resolved and her appetite has improved compared to 11/02. When asked about her appetite and diet she states that she is eating and drinking well but her family states that she does not eat as much as she should. She will have half a banana for breakfast but will often forget to eat the other half. They confirm that she is not on electrolyte supplementation, multivitamins, or diuretics. Her main complaint today is BL LE stiffness/cramping she has been experiencing over the past week. She states that she is mostly asymptomatic at rest but notices her symptoms when gets up from sitting and starts to walk. She denies recent swelling in her LE's and has no other complaints at the time of my exam. I spoke to she and her family regarding code status, the patient wishes to be a full code. Her would make decisions for her if she could not make them herself. Please refer to Dr. Gordon's attestation for any changes to the treatment plan Principal Diagnosis Hypokalemia, diarrhea Discharge Exam General: A&Ox3. NAD. Cooperative. HEENT: Atraumatic, normocephalic. Pulm: CTAB A&P. -wheezes, -rales, -rhonchi. Symmetrical chest rise. No increased work of breathing. No respiratory distress. Cardiac: RRR, -mrg. Radial pulses intact and symmetrical. Abdominal: Nontender, nondistended, soft. BS present. Extremities: Warm, dry. Moves all extremities equally, sensation soft touch intact in his feet bilaterally. Walks around room without difficulty. Discharge Data Allergies Allergy/AdvReac Type Severity Reaction Status Date / Time Sulfa (Sulfonamide Allergy Severe HIVES; Verified 11/15/22 19:10 Antibiotics) throat swelling Consultations 11/15/22 19:26 ED Decision to Admit Stat Hospital Course (1) Hypokalemia: Dena is a 72-year-old female who presented to the hospital for weakness and muscle cramps in the setting of several days of nausea/vomiting Was found to have a potassium of 3 and magnesium of 1.0. Viral Quad screen was negative. She received IV and oral electrolyte repletion. She clinically improved over the next 24 hours, and at time of reassessment 11/16 she felt that she had had a normal bowel movement which was not loose, was feeling stronger and near normal, and was excited and ready to go home. No continued nausea/vomiting, no abdominal pain. Feels she still has very slight diffuse fatigue, and some bilateral knee pain, otherwise no symptoms. No fever/chills/sweats, no shortness of breath, no chest pain or difficulty breath ing at discharge. Due to polymyalgia Lyme test and ESR/CRP were ordered, patient was comfortable following up with outpatient provider for this. Potassium had normalized, magnesium was high by 0.1, and phosphorus was slightly low 2.3. Patient was continued on 1 day of continued phosphorus and potassium repletion via K-Phos with 1 week follow-up to her PCP with repeat BMP. Return precautions were discussed to which she was agreeable. To do as outpatient: 1. Complete 4 additional doses of K-Phos twice daily 2. Follow-up with PCP for routine BMP 3. Follow-up on final results of Lyme, ESR/CRP for history of polyarthralgia Hypokalemia Suspect 2/2 diarrhea with relatively poor p.o. intake. -Admit to med tele -Patient is currently afebrile, hemodynamically stable, and stable on RA -Potassium noted to be 2.6 in the ED, noted to also have a magnesium of 0.9 -Patient was last seen in the [facility] ED in 11/02 for the same complaint, was give IV magnesium and both IV/PO KCL but declined being admitted for further repletion -Patient is not on a diuretic and appears to not have a good diet, she also had a recent week of diarrhea. Her low potassium and magnesium are likely the result of poor oral intake, recent diarrheal illness, inadequate repletion, and not being on supplementation prior to arrival -Was ordered 2g IV magnesium, 2 doses of 10 meq IV KCL, and 40 meq PO KCL. Patient is currently in the process of receiving her initial repletion -Will order 5 additional bags of IV magnesium and 40 meq PO KCL -Will order a phos level as well -Continue to monitor on tele -Will order repeat labs for midnight to reassess electrolyte status, will speak with night team to replete as needed based on repeat labs. -AM CBC, BMP, mag -Beer Cooler consult ordered -DVT PPX with BL SCDs (2) Hypomagnesemia: -See hypokalemia (3) Myalgia: -Patient has noted BL LE stiffness/cramping with standing/ambulation over the past week-2 weeks -Likely the result of her electrolyte abnormalities, would reassess when her electrolytes are stable, if she is still having symptoms despite correction of electrolytes would continue further workup (4) Overactive bladder: -Continue tolterodine (5) Anxiety: -Continue Duloxetine (6) Depression: -Continue Duloxetine (7) Hyperlipidemia: -Continue statin (8) GERD (gastroesophageal reflux disease): -continue pantoprazole Plan The patient was discussed with Dr. Gordon at the time of the admission Total Time Total Time Spent Total Time Spent (In Minutes): Time spend day of discharge 40 minutes including direct patient care, documentation, review of labs and images, and coordination of care. Discharge Plan Discharge Items Patient Disposition: Home - Self-Care Reason For Visit: ABNORMAL OUTPATIENT LABS/HYPOKALEMIA Discharge Diagnosis: Hypokalemia 2/2 diarrhea, low p.o. intake Activity: Resume your previous activity Non-emergency contact: Primary Care Provider Call non-emergency contact if: you have any medication questions, your symptoms worsen and you have a fever Follow-up/Referrals: Nadia Elam CRNP [Primary Care Provider] - 11/25/22 11:30 am Diet: Regular Addtl Attending Provider Instructions: You were seen in the hospital for low potassium and low magnesium levels, likely caused by diarrhea combined with low oral intake of high potassium foods. You received IV and oral replacement of your electrolytes, your potassium returned to normal, your magnesium was very slightly high, and your phosphorus was very slightly low at time of discharge. You felt clinically improved and stable for discharge. You did endorse some aches and multiple joint pain without fever/chills. A Lyme test and inflammatory test has been sent, this was pending at discharge. Please follow-up on these tests with your primary care provider. You have been prescribed a phosphorus and potassium supplement called K-Phos. Please take K-Phos 1 packet/tab twice daily for 2 more days. Your primary care provider will repeat your potassium, phosphorus, and magnesium levels within 1 week. An appointment is being arranged for you with your primary care provider. You should receive a call to confirm your appointment within 48 hours. You should be seen for a follow-up with blood work as noted above within 1 week. If you do not receive a call to confirm an appointment, please call your primary care provider's office directly at the number above. If you develop any new or worsening symptoms including fever, chills, sweats, chest pain, chest pressure, difficulty breathing, uncontrolled nausea/vomiting, rash, wheezing, passing out or nearly passing out, bleeding, black/bloody bowel movements, or other new or concerning symptoms please call your primary care physician, or call 911 for re-evaluation in the emergency department if you are very concerned. Pending Studies at Discharge: Yes (Lyme, ESR/CRP) Stand-Alone Forms: My [facility] [employer], Smoking Cessation Medications and DC Order Prescriptions: New Phospha 250 Neutral 250 mg Tablet 1 tab PO BID 2 Days Qty: 4 0RF Continued fluticasone propionate [Allergy Relief (fluticasone)] 50 mcg/actuation spray,suspension 1 sprays INTNAS DAILY PRN (Reason: allergy symptoms) Qty: 16 2RF Rx Instructions: administer into each nostril daily tolterodine 4 mg capsule,extended release 24hr 4 mg PO PM Qty: 90 3RF simvastatin 40 mg tablet 40 mg PO QPM Qty: 90 3RF pantoprazole 40 mg tablet,delayed release (DR/EC) 40 mg PO BID Qty: 60 11RF duloxetine 60 mg capsule,delayed release(DR/EC) 60 mg PO QAM Qty: 90 3RF loratadine [Allergy Relief (loratadine)] 10 mg tablet 10 mg PO DAILY PRN (Reason: allergy symptoms) Qty: 90 3RF bismuth subsalicylate [Pepto-Bismol] 262 mg tablet,chewable 2 tab PO Q1H PRN (Reason: UPSET STOMACH) Rx Instructions: do not exceed 16 tabs per 24 hrs Discharge Orders: Discharge Order (Routine); Ordered 11/16/22 Ordered By: Dallin Greenwood Admission Data Admit Date/Time: 11/15/22 19:42 Attending Provider: Dallin Greenwood Admit Provider: Dallin Greenwood Primary Care Provider: Nadia Elam Other Providers: Shanthi Gordon Other Interventions: Discharge Summary Assessment (RN) Last Done: 11/16/22 10:25 Coding Level of Care Code HOSP INP/OBS DISCH >30 MIN Diagnoses Hypokalemia E87.6 Hypomagnesemia E83.42 Myalgia M79.10 Overactive bladder N32.81 Anxiety F41.9 Depression F32.9 Hyperlipidemia E78.5 GERD (gastroesophageal reflux disease) K21.9
[2022-11-16 12:42] LABS: Lyme Ab IgG w/WB Rflx Negative (Negative)
[2022-11-16] MEDS ORDERED: POT PHOSPHATE MONOBASIC W/ SOD TAB PO SCH (13:00)
[2022-11-16 13:07] LABS: Lyme Ab IgM w/WB Rflx Equivocal (Negative)
[2022-11-18 16:17] LABS: 18KDIGG Band REACTIVE; 23KDIGG Band NON-REACTIVE; 23KDIGM Band REACTIVE; 28KDIGG Band NON-REACTIVE; 30KDIGG Band NON-REACTIVE; 39KDIGG Band NON-REACTIVE; 39KDIGM Band NON-REACTIVE; 41KDIGG Band REACTIVE; 41KDIGM Band NON-REACTIVE; 45KDIGG Band NON-REACTIVE; 58KDIGG Band REACTIVE; 66KDIGG Band NON-REACTIVE; 93KDIGG Band NON-REACTIVE; Lyme Antibodies, WB IgG NEGATIVE (NEGATIVE); Lyme Antibodies, WB IgM NEGATIVE (NEGATIVE)
== END 2022-11-16 12:01 | disposition home or self-care (01) ==
LOC: ED 17:03 → 2W 19:42 → SUATTDRO 19:42 → INTOOBSV 19:42 → 2W 22:13